=== PATIENT | male | born 1990 | race Asian ===

== ENCOUNTER 2023-03-22 06:55 | Emergency (ER) | payer SELFPAY ==
--- OUTSIDE RECORDS SUMMARY | 2023-03-22 06:59 | XMS REPORT | Continuity of Care Document ---
:1990 Author Organization [facility] t Address [address] [facility] [address] [place] [id number] Care Team Providers Name Role Phone EsquivelSalazar Attending Clinician Unavailable Payers Payer Name Policy Type Policy Number Effective Date Expiration Date Magalie wylie [employer] C1 [id number] 2020 [facility] 00:00[facility]00 [facility] CIGNA C1 [id number] 2018 [facility] - 00:00:00 [facility] Problems Condition Condition Condition Status Onset Resolution Last Treating Co mments Source Name Details Category Date Date Treatment Clinician Date [id number] Hypersomni Problem Active Com mon a [facility] [id number] GERD Problem Active Common without Spirit esophagiti - [facility] s [facility] [id number] Simple Problem Active Common chronic Spirit bronchitis [facility] [id number] Fatigue, Problem Active Commo n unspecifie Spirit d type [facility] [id number] Plantar Problem Active Commo n fasciitis [facility] [id number] Insomnia, Problem Active Com mon unspecifie Spirit d [facility] [id number] Allergic Problem Active Commo n rhinitis, Spirit unspecifie - [facility] d [facility] y Medical unspecifie [place] d trigger [id number] Anxiety Problem Active Commo n about [facility] health [facility] [id number] RACHELLE Problem Active Common (generaliz Spirit ed anxiety - CHI disorder) [facility] Allergies, Adverse Reactions, Alerts This patient has no known allergies or adverse reactions. Social History Social Habit Start Date Stop Date Quantity Comments Source History of Tobacco Use Co mmon [facility] Sex Assigned At Com mon [facility] Smoking Status Start Date Stop Date Source Never Smoker Common [facility] Medications Ordered Filled Start Stop Current Ordering Indication Dosage Frequency Signature Comments Components Source Medication Medication Date Date Medication? Clinician (SIG) Name Name Uche Maguireiptyli No 1{table QD Amitriptyl Common ne HCl 25 ne HCl 25 2-09 t_at_be ine HCl 25 Spirit MG MG 00:00: dtime} MG - [facility] Amitriptylnallely Cartytriptyli No 1{table QD Amitriptyl Common ne HCl 25 ne HCl 25 2-09 t_at_be ine HCl 25 Spirit MG MG 00:00: dtime} MG - [facility] Omeprazole Omeprazole Yes Salazar 1 capsule Common 02-16 Esquivel Spirit 00:00: [facility] Yes Salazar not Common Esquivel defined [facility] Multivitami Multivitami Yes Salazar not Common n Men n Men Esquivel defined [facility] No [facility] Multivitami Multivitami No Multivitam n Men n Men in Men Omeprazole Omeprazole No 1{capsu QD Omeprazole 40 MG 40 MG le} 40 MG Multivitami Multivitami No Multivitam Common n Men n Men in Men [facility] No [facility] Omeprazole Omeprazole No 1{capsu QD Omeprazole Common 40 MG 40 MG le} [address] [facility] Multivitami Multivitami No Multivitam Common n Men n Men in Men [facility] Omeprazole Omeprazole No 1{capsu QD Omeprazole Common 40 MG 40 MG le} 40 MG [facility] No [facility] Vital Signs Vital Name Observation Time Observation Value Comments Source height 2020-11-28 09:00:00 68 [in_i] [facility] weight 2020-11-28 09:00:00 177.1 [lb_av] [facility] temperature 2020-11-28 09:00:00 97.5 [degF] [facility] bmi 2020-11-28 09:00:00 26.93 kg/m2 [facility] height 2020-07-25 16:10:00 68 [in_i] [facility] weight 2020-07-25 16:10:00 168.4 [lb_av] [facility] temperature 2020-07-25 16:10:00 97.9 [degF] [facility] bmi 2020-07-25 16:10:00 25.6 kg/m2 [facility] oximetry 2020-07-25 16:10:00 99 % [facility] respiratory rate 2020-07-25 16:10:00 17 /min Comm on [facility] blood pressure 2020-07-25 16:10:00 133 mm[Hg] [facility] systolic [facility] blood pressure 2020-07-25 16:10:00 70 mm[Hg] [facility] diastolic [facility] Procedures This patient has no known procedures. Encounters Start End Encounter Admission Attending Care Care Encounter Source Date/Time Date/Time Type Type Clinicians Facility Department ID 2021-07-11 [facility] [id number] Common 13:52:[id number] [facility] 2021-07-11 [facility] [id number] Common 13:14:[id number] [facility] 2021-07-11 [facility] [id number] Common 13:14:[id number] [facility] 2021-07-11 Outpatient Esquivel, STLMLC STL[facility] [id number] Common 13:06:[id number] [facility] 2021-07-11 Outpatient Esquivel, STLMLC STLMLC [id number] Common 12:29:[id number] [facility] 2021-07-11 Outpatient Esquivel, STLMLC STLMLC [id number] Common 11:38:[id number] [facility] 2020-11-28 2020-11-28 OFFICE STLMLC STLMLC [id number] Co mmon 00:00:00 00:00:00 VISIT NEW Spir it PT LEVEL 3 [facility] 2020-07-25 2020-07-25 OFFICE STLMLC STLMLC [id number] Co mmon 00:00:00 00:00:00 VISIT Spirit ESTAB PT - CHI LEVEL 4 [facility] 2020-01-31 2020-01-31 [id number] Common 09:45:00 09:45:[address] [facility] 2020-01-31 2020-01-31 [facility] [id number] Common 09:27:00 09:27:[address] [facility] 2019-03-16 2019-03-16 [facility] [id number] Common 08:15:00 08:15:[address] [facility] 2019-02-16 2019-02-16 [facility] [id number] Common 14:30:00 14:30:[address] [facility] 2018-11-25 2018-11-25 [facility] [id number] Common 15:00:00 15:00:[address] [facility] 2018-10-28 2018-10-28 (TEL) STLMLC STLMLC [id number] Co mmon 00:00:00 00:00:00 [facility] 2018-10-16 2018-10-16 [facility] [id number] Common 08:30:00 08:30:[address] [facility] 2018-10-01 2018-10-01 [facility] [id number] Common 15:59:00 15:59:[address] [facility] 2018-09-23 2018-09-23 [facility] [id number] Common 07:57:00 07:57:[address] [facility] 2018-09-22 2018-09-22 [facility] [id number] Common 11:30:00 11:30:[address] [facility] 2017-12-30 2017-12-30 [facility] [id number] Common 10:00:00 10:00:[address] [facility] 2017-09-29 2017-09-29 [facility] [id number] Common 10:00:00 10:00:[address] [facility] Results This patient has no known results.
--- NOTE | 2023-03-22 07:19 | ER ---
Nurse's Notes [facility] Name: Eric You Age: 32 yrs Sex: Male : 1990 Arrival Date: 03/22/2023 Time: 06:55 Bed 6 Private MD: Diagnosis: Sore throat Presentation: 03/22 07:13 Chief complaint: Patient states: Sore throat and body aches, recent travel to the [facility], recent exposure to covid + person. Coronavirus screen: Vaccine status: Patient reports receiving the 2nd dose of the covid vaccine. Ebola Screen: No symptoms or risks identified at this time. 07:13 Method Of Arrival: Ambulatory ph 07:15 Initial Sepsis Screen: Does the patient meet any 2 criteria? No. Patient's initial ph sepsis screen is negative. Does the patient have a suspected source of infection? No. Patient's initial sepsis screen is negative. Risk Assessment: Do you want to hurt yourself or someone else? Patient reports no desire to harm self or others. Onset of symptoms was March 22, 2023. 07:15 Acuity: ANTONY 4 ph Historical: - Allergies: 07:15 No Known Allergies; ph - PMHx: 07:15 acid reflux; ph - Immunization history:: Adult Immunizations up to date. - Social history:: Smoking status: Patient denies any tobacco usage or history of. Screenin:15 [facility] ED Fall Risk Assessment (Adult) History of falling in the last 3 months, ph including since admission No falls in past 3 months (0 pts) Score/Fall Risk Level 0 - 2 = Low Risk Oriented to surroundings, Maintained a safe environment, Provided non-skid footwear, Hourly rounding (assess needs \T\ fall precautionary measures) done. Abuse screen: Denies threats or abuse. Denies injuries from another. Nutritional screening: No deficits noted. Tuberculosis screening: No symptoms or risk factors identified. Assessment: 07:22 General: Appears in no apparent distress. comfortable, Behavior is calm, cooperative, ph appropriate for age. Pain: Complains of pain in body aches. Neuro: Level of Consciousness is awake, alert, obeys commands, Oriented to person, place, time, situation. Cardiovascular: Capillary refill < 3 seconds in bilateral fingers Patient's skin is warm and dry. Respiratory: Airway is patent Respiratory effort is even, unlabored. Respiratory: Denies cough, shortness of breath. EENT: Reports pain when swallowing. Vital Signs: 07:13 BP 157 / 98; Pulse 90; Resp 18; Temp 98; Pulse Ox 98% ; Weight 78.47 kg; Height 5 ft. 8 ph in. ; 07:13 Body Mass Index 26.30 (78.47 kg, 172.72 cm) ph ED Course: 06:58 Patient arrived in ED. ag3 07:02 Jaskaran Zapata MD is Attending Physician. rt 07:04 Arm band placed on Patient placed in an exam room, on a stretcher. ll1 07:13 Raquel Du RN is Primary Nurse. ph 07:15 Triage completed. ph 07:15 Patient has correct armband on for positive identification. Bed in low position. Call ph light in reach. Side rails up X 1. Door closed. Noise minimized. 07:23 No provider procedures requiring assistance completed. Patient did not have IV access ph during this emergency room visit. Administered Medications: No medications were administered Medication: 07:16 VIS not applicable for this client. ph Outcome: 07:19 Discharge ordered by . rt 07:23 Discharged to home ambulatory, ph 07:23 Condition: good 07:23 Discharge instructions given to patient, Instructed on discharge instructions, follow up and referral plans. Demonstrated understanding of instructions, follow-up care, 07:23 Patient left the ED. ph Signatures: Raquel Du, NIMA RN ph Darshana Nguyen 3 Audrey Nieves RN RN 1 Jaskaran Zapata MD MD rt
--- NOTE | 2023-03-22 07:19 | EDPHYS ---
Physician Documentation [facility] Name: Eric You Age: 32 yrs Sex: Male : 1990 Arrival Date: 03/22/2023 Time: 06:55 Bed 6 Private MD: ED Physician Jaskaran Zapata HPI: 03/22 07:13 This 32 yrs old Male presents to ER via Unassigned with complaints of COVID rt SYMPTOMS, EXPOSURE. 07:13 Patient arrived from the [facility] about 2 days ago. Patient a person that he was rt with the test positive for COVID. He reports a sore throat, mild body aches. Denies cough, difficulty breathing. Is requesting a COVID-19 test for work. Symptoms are mild in severity, no other aggravating or alleviating factors.. Historical: - Allergies: 07:15 No Known Allergies; ph - PMHx: 07:15 acid reflux; ph - Immunization history:: Adult Immunizations up to date. - Social history:: Smoking status: Patient denies any tobacco usage or history of. ROS: 07:13 Cardiovascular: Negative for chest pain, palpitations, and edema, Respiratory: Negative rt for shortness of breath, cough, wheezing, and pleuritic chest pain, Abdomen/GI: Negative for abdominal pain, nausea, vomiting, diarrhea, and constipation, Skin: Negative for injury, rash, and discoloration, Neuro: Negative for headache, weakness, numbness, tingling, and seizure, Psych: Negative for depression, anxiety, suicide ideation, homicidal ideation, and hallucinations, 07:13 Constitutional: Positive for body aches, Negative for fever, 07:13 ENT: Positive for sore throat, Negative for rhinorrhea, Exam: 07:13 Constitutional: This is a well developed, well nourished patient who is awake, alert, rt and in no acute distress. Head/Face: Normocephalic, atraumatic. Chest/axilla: Normal chest wall appearance and motion. Nontender with no deformity. No lesions are appreciated. Cardiovascular: Regular rate and rhythm with a normal S1 and S2. No gallops, murmurs, or rubs. Normal PMI, no JVD. No pulse deficits. Respiratory: Lungs have equal breath sounds bilaterally, clear to auscultation and percussion. No rales, rhonchi or wheezes noted. No increased work of breathing, no retractions or nasal flaring. Abdomen/GI: Soft, non-tender, with normal bowel sounds. No distension or tympany. No guarding or rebound. No evidence of tenderness throughout. Skin: Warm, dry with normal turgor. Normal color with no rashes, no lesions, and no evidence of cellulitis. MS/ Extremity: Pulses equal, no cyanosis. Neurovascular intact. Full, normal range of motion. Neuro: Awake and alert, GCS 15, oriented to person, place, time, and situation. Cranial nerves II-XII grossly intact. Motor strength 5/5 in all extremities. Sensory grossly intact. Cerebellar exam normal. Normal gait. Psych: Awake, alert, with orientation to person, place and time. Behavior, mood, and affect are within normal limits. 07:13 ENT: Mild posterior pharyngeal erythema without exudates or tonsillar hypertrophy, uvula is midline. Vital Signs: 07:13 BP 157 / 98; Pulse 90; Resp 18; Temp 98; Pulse Ox 98% ; Weight 78.47 kg; Height 5 ft. 8 ph in. ; 07:13 Body Mass Index 26.30 (78.47 kg, 172.72 cm) ph MDM: 07:09 Patient medically screened. rt 07:37 Differential Diagnosis COVID, URI. Data reviewed: vital signs, nurses notes. Test rt considered but Not performed: Labs: Symptoms not consistent with a strep pharyngitis, strep screen not indicated. Counseling: I had a detailed discussion with the patient and/or guardian regarding the historical points, exam findings, and any diagnostic results supporting the discharge/admit diagnosis, the need for outpatient follow up. ED course: Patient wishes to go home prior to results of COVID test, will inform patient of findings once they result.. 03/22 07:12 Order name: SARS RAPID; Complete Time: 08:24 rt Administered Medications: No medications were administered Disposition Summary: 03/22/23 07:19 Discharge Ordered Notes: Location: Home rt Problem: new rt Symptoms: are unchanged rt Condition: Stable rt Diagnosis - Sore throat rt Followup: rt - With: Private Physician - When: 2 - 3 days - Reason: Discharge Instructions: - Discharge Summary Sheet rt - Upper Respiratory Infection, Adult rt Forms: - Medication Reconciliation Form rt - Thank You Letter rt - Antibiotic Education rt - Prescription Opioid Use rt - Patient Portal Instructions rt - Leadership Thank You Letter rt Signatures: Dispatcher [employer] Raquel Morales, NIMA RN ph Jaskaran Zapata MD MD rt
[2023-03-22 07:27] VITALS: BP 157/98; TEMP 98; O2SAT 98
[2023-03-22 07:55] LABS: SARS-CoV-2 Antigen Rapid Res Negative (Negative)
== END 2023-03-22 07:23 | disposition home or self-care (01) ==
LOC: ER 06:55
DX: J02.9 Acute pharyngitis, unspecified (principal); Z20.822 Contact with and (suspected) exposure to COVID-19; Z86.16 Personal history of COVID-19
CPT/HCPCS: 36415; 87811; 99282